=== PATIENT | male | born 1990 | race Caucasian/White ===

== ENCOUNTER 2024-11-03 19:49 | Emergency (ER) | payer OTHER, SELFPAY ==
[2024-11-03 19:50] VITALS: BP 136/83; PULSE 64; PULSE 66; RESP 18; TEMP 36.8; O2SAT 97
[2024-11-03 20:06] VITALS: BMI 33.7
--- NOTE | 2024-11-03 20:15 | XR_ITS ---
Examination: CT brain head without contrast. 2-D sagittal coronal reconstructions Date and time of exam:November 03, 2024, 2023 hours Injury to the back of the head today, head pain CTDI: vol (mGy):58 DLP: (mGycm):1191 Technique: Multiple CT axial sections of the brain have been obtained, 5 mm slice thickness. Contrast has not been administered. 2-D sagittal, coronal reconstructions have been obtained Low dose protocols were performed. One or more of the following dose reduction techniques were used; automated exposure control, adjustment of the mA and/or KV according to patient size, use of iterative reconstruction technique. Findings: No significant ventricular enlargement. Intra-axial or extra-axial hemorrhage density is not seen. No mass effect or midline shift Basal cisterns are not remarkable. Fourth ventricle is midline. Cranial vault intact. Small air densities in the posterior scalp Left temporal craniotomy defect Impression: Negative for acute hemorrhage, mass effect or midline shift
--- NOTE | 2024-11-03 20:17 | EDNOTE_ITS ---
ED Fall Injury RME/HPI General Chief Complaint: Fall Stated Complaint: FALL Time Seen by Provider: 11/03/24 20:15 Source: patient Arrival date/time: 11/03/24 19:49 34-year-old male patient presents with correctional officers to the ED with a chief complaint of a posterior scalp laceration secondary to a slip and fall on a concrete floor. Patient is at a camp in the [facility]. He denies any loss of consciousness. He denies any visual or hearing changes. He denies any nausea, vomiting, abdominal pain. He denies any numbness or tingling or weakness to his extremities. He denies any neck pain. Mode of arrival: ambulatory Limitations: no limitations Related Data Allergies Allergy/AdvReac Type Severity Reaction Status Date / Time No Known Allergies Allergy Verified 11/03/24 20:08 Review of Systems Review of Systems Systems Reviewed: All systems reviewed, normal except as documented Constitutional Constitutional: Reports as per HPI and Denies headache(s) Eyes Eyes: Denies blurry vision, Denies change in vision, Denies diplopia, Denies loss of vision and Denies other visual disturbances ENT Ears, Nose, Mouth, and Throat: Denies dizziness, Denies headache(s), Denies hearing loss, Denies neck pain, Denies tinnitus and Denies vertigo Cardiovascular Cardiovascular: Reports as per HPI Respiratory Respiratory: Reports as per HPI Musculoskeletal Musculoskeletal: Denies muscle weakness, Denies neck pain, Denies numbness and Denies tingling Neurologic Neurologic: Denies confusion, Denies dizziness, Denies localized weakness, Denies headache(s), Denies loss of vision, Denies numbness, Denies other visual disturbances, Denies paresthesias, Denies tingling and Denies vertigo Psychiatric Psychiatric: Denies confusion ED Exam Narrative Physical exam: 34-year-old male, no acute distress, vital signs stable: BP 136/83, P64, RR 18, T98.2, O2 sat 97% on room air. He is alert and oriented. Contusion with swelling and minimal tenderness to the posterior scalp. Pupils are PERRL, EOMs intact. Neck is supple, no spinal point tenderness, no paraspinal tenderness. Normal range of motion. Lungs are clear, regular rate and rhythm. Moves all extremities well. Cranial nerves II through XII are grossly intact. Equal internal medicine nurse practitioner strength, equal pedal push/pull. Sensory and motor intact to all 4 extremities. General Limitations: Present no limitations General appearance: Present alert and in no apparent distress Head Head exam: Present other (Contusion with swelling and minimal tenderness to the posterior scalp.) Expanded Head Exam Head exam physical: Present laceration (Closed laceration with SuperGlue by other inmates. Bleeding controlled.) and contusion; Absent raccoon eyes, Hussein's sign or tenderness of temporal artery Eye Eye exam: Present normal appearance, PERRL and EOMI; Absent nystagmus or periorbital swelling Neck Neck exam: Present normal inspection and full ROM; Absent tenderness Respiratory Respiratory exam: Present normal lung sounds bilaterally; Absent respiratory distress Cardiovascular Cardiovascular exam: Present regular rate, normal rhythm and normal heart sounds Abdominal Exam Abdominal exam: Absent distention Extremities Exam Extremities exam: Present normal inspection Back Exam Back exam: Present normal inspection; Absent tenderness or vertebral tenderness Neurological Exam Neurological exam: Present alert, oriented X3, CN II-XII intact and normal gait; Absent motor sensory deficit Psychiatric Psychiatric exam: Present normal affect and normal mood; Absent agitated or anxious Skin Skin exam: Present warm, dry and other (Laceration as noted above.) Course Course Course Narrative: 34-year-old male patient presents with correctional officers to the ED with a chief complaint of a posterior scalp laceration secondary to a slip and fall on a concrete floor. Patient is at a camp in the [facility]. He denies any loss of consciousness. He denies any visual or hearing changes. He denies any nausea, vomiting, abdominal pain. He denies any numbness or tingling or weakness to his extremities. He denies any neck pain. 34-year-old male, no acute distress, vital signs stable: BP 136/83, P64, RR 18, T98.2, O2 sat 97% on room air. He is alert and oriented. Contusion with swelling and minimal tenderness to the posterior scalp. Pupils are PERRL, EOMs intact. Neck is supple, no spinal point tenderness, no paraspinal tenderness. Normal range of motion. Lungs are clear, regular rate and rhythm. Moves all extremities well. Cranial nerves II through XII are grossly intact. Equal internal medicine nurse practitioner strength, equal pedal push/pull. Sensory and motor intact to all [address] head/brain obtained Quality Measures none Orders Category Date Time Status CT head/brain wo con Stat Exams 11/03/24 20:15 Completed Vital Signs Vital signs: Vital Signs Temperature 98.2 F 11/03/24 19:50 Pulse Rate 64 11/03/24 19:50 Respiratory Rate 18 11/03/24 19:50 Blood Pressure 136/83 H 11/03/24 19:50 Pulse Oximetry (%) 97 11/03/24 19:50 Oxygen Delivery Method Room Air 11/03/24 19:50 Fall MDM Narrative MDM Narrative:: 34-year-old male patient presents with correctional officers to the ED with a chief complaint of a posterior scalp laceration secondary to a slip and fall on a concrete floor. Patient is at a camp in the [facility]. He denies any loss of consciousness. He denies any visual or hearing changes. He denies any nausea, vomiting, abdominal pain. He denies any numbness or tingling or weakness to his extremities. He denies any neck pain. 34-year-old male, no acute distress, vital signs stable: BP 136/83, P64, RR 18, T98.2, O2 sat 97% on room air. He is alert and oriented. Contusion with swelling and minimal tenderness to the posterior scalp. Pupils are PERRL, EOMs intact. Neck is supple, no spinal point tenderness, no paraspinal tenderness. Normal range of motion. Lungs are clear, regular rate and rhythm. Moves all extremities well. Cranial nerves II through XII are grossly intact. Equal internal medicine nurse practitioner strength, equal pedal push/pull. Sensory and motor intact to all [address] head/brain obtained Negative for acute hemorrhage, mass effect or midline shift Patient data External records reviewed:: None Clinical information provided by:: patient Social determinants that could affect healthcare access:: none Patient has the following chronic illnesses:: None How is presenting disease/condition affected by chronic disease/condition?: no chronic disease Evaluation data The following diagnostics were reviewed and interpreted by me:: radiology exam(s) Lab and/or radiology exams considered but not ordered:: None Interpretation Summary: CT brain: Findings: No significant ventricular enlargement. Intra-axial or extra-axial hemorrhage density is not seen. No mass effect or midline shift Basal cisterns are not remarkable. Fourth ventricle is midline. Cranial vault intact. Small air densities in the posterior scalp Left temporal craniotomy defect Impression: Negative for acute hemorrhage, mass effect or midline shift Medications / Prescriptions Medications or Prescriptions considered but not ordered:: None Medication administrations:: None Consultations Consultation(s) initiated? (list below): No Diagnosis Fall Differential Diagnosis: syncope, concussion with loss of consciousness and concussion without loss of consciousness Most likely diagnosis given after review of the tests above:: Concussion without loss of consciousness, scalp laceration Admission Indicated Admission indicated?: not indicated Explain why admission is indicated or not indicated:: Patient is stable for discharge Admission Request Was there a request for admission?: No Disposition Plan Disposition Plan: Discharge Discharge Attestation Discharge Attestation: The patient and all family members were given an opportunity to ask questions and understood the discharge instructions. Discharge instructions specifically effects, indications for sooner follow up or return to the emergency department, and the expected course of current diagnosis. Patient condition: Stable Discharge Plan Plan Patient Disposition: Alf/Court/Law Discharge Disposition comment: Stable and improved Patient condition on transfer: Stable Prescriptions/Referrals Referrals: No Primary/Family,Physician [Primary Care Provider] - In 1 week Problem List Clinical Impression: Fall, Laceration of scalp, Concussion without loss of consciousness Patient/Caregiver Discharge Instructions Education Materials: ED Fall with Uncertain Cause, ED Head Injury (Adult), ED Laceration Scalp Sutures or ... Additional Instructions: Follow-up with your primary care physician in 24 to 48 hours. Return to the ED for any new or worsening symptoms. Print Language: Maltese LICHA/ALINA Supervising Physician LICHA/ALINA Supervising Physician: Dr. Elam
== END 2024-11-03 22:06 ==
PROVIDERS: Emergency Provider Emergency Medicine
DX: S01.01XA Laceration without foreign body of scalp, initial encounter (principal); W01.0XXA Fall on same level from slipping, tripping and stumbling without subsequent striking against object, initial encounter; Y92.833 Campsite as the place of occurrence of the external cause
CPT/HCPCS: 70450; 99284